=== PATIENT | male | born 1985 | race Caucasian/White ===

== ENCOUNTER 2018-03-29 19:36 | Emergency (ER) | payer OTHER ==
[2018-03-29] MEDS: IBUPROFEN 600 MG TAB PO (21:35)
== END 2018-03-29 21:42 | disposition home or self-care (01) ==
LOC: M ED 19:36
DX: G56.31 Lesion of radial nerve, right upper limb (principal); F11.10 Opioid abuse, uncomplicated; F17.200 Nicotine dependence, unspecified, uncomplicated
CPT/HCPCS: 99284

== ENCOUNTER 2025-02-21 03:25 | Emergency (ER) | payer OTHER ==
[~2025-02-21] VITALS: Ht 170.2 cm; Wt 63.0 kg
[~2025-02-21 03:25] MED LIST: IBUP-1022 PO
[2025-02-21 04:32] LABS: BASO # 0.1 10^3/uL (0.0-0.2); BASO % 0.7 % (0.0-1.0); EOS # 0.2 10^3/uL (0.0-0.5); EOS % 1.7 % (0.0-3.0); LYMPH # 2.4 10^3/uL (1.5-5.0); LYMPH % 18.3 % (24.0-44.0); MONO # 0.7 10^3/uL (0.0-0.8); MONO % 5.3 % (2.0-8.0); NEUTROPHILS # 9.8 10^3/uL (1.5-8.5); NEUTROPHILS % 73.6 % (36.0-66.0); PLATELET COUNT, AUTOMATED 391 10^3/uL (150-450)
[2025-02-21 05:02] LABS: ALT/SGPT 10 U/L (7.0-40); AST/SGOT 18 U/L (<34); CALCIUM LEVEL 9.5 MG/DL (8.5-10.1); CARBON DIOXIDE LEVEL 28 MMOL/L (20-31); CHLORIDE LEVEL 103 MMOL/L (98-107); CREATININE FOR GFR 0.91 MG/DL (0.70-1.30); GLOMERULAR FILTRATION RATE > 90.0 (>60); POTASSIUM SERUM 4.6 MMOL/L (3.5-5.1); SODIUM LEVEL 142 MMOL/L (136-145)
[2025-02-21 05:45] VITALS: TEMP 99.1
[2025-02-21 05:51] LABS: KETONE, URINE AUTO RFX NEGATIVE (NEGATIVE); LEUKOCYTE ESTERASE UR AUTO RFX NEGATIVE (NEGATIVE); NITRITE, URINE AUTO RFX NEGATIVE (NEGATIVE); RBC, URINE AUTO RFX 0 /HPF (0-3); SQUAM EPITHELIAL CELL UR AURFX 0 /HPF (0-6); WBC, URINE AUTO RFX 0 /HPF (0-3)
[2025-02-21] MEDS: METHYLNALTREXONE BROMIDE 12 MG/0.6 ML VIAL SC ONE (06:03)
[2025-02-21] MEDS: KETOROLAC 30 MG/ML 1 ML VIAL IV ONE (06:03)
[2025-02-21] MEDS: GASTROGRAFIN SOLUTION 30ML PO SCH (06:50)
[2025-02-21] MEDS ORDERED: ISOVUE-370 76% 100 ML VIAL As Ordered ONE (08:30)
[2025-02-21] MEDS: NS (Normal Saline) 0.9% 1,000 ML IV ONE (09:23)
[2025-02-21 10:21] LABS: BASO # 0.1 10^3/uL (0.0-0.2); BASO % 0.6 % (0.0-1.0); EOS # 0.0 10^3/uL (0.0-0.5); EOS % 0.2 % (0.0-3.0); LYMPH # 0.9 10^3/uL (1.5-5.0); LYMPH % 8.7 % (24.0-44.0); MONO # 0.4 10^3/uL (0.0-0.8); MONO % 3.9 % (2.0-8.0); NEUTROPHILS # 9.1 10^3/uL (1.5-8.5); NEUTROPHILS % 86.2 % (36.0-66.0)
[2025-02-21] MEDS ORDERED: HOME MED LIST COMPLETE! XX SCH (11:30)
[2025-02-21] MEDS ORDERED: MIRA3350 PO (11:34)
[2025-02-21] MEDS ORDERED: PERC5TAB12 PO (11:34)
[2025-02-21] MEDS ORDERED: AMOX875T2 PO (11:34)
[2025-02-21 11:45] VITALS: BP 131/71; O2SAT 98
== END 2025-02-21 11:47 | disposition left against medical advice (07) ==
LOC: M ED 03:25
DX: K52.9 Noninfective gastroenteritis and colitis, unspecified (principal); F11.23 Opioid dependence with withdrawal; K59.00 Constipation, unspecified; K42.9 Umbilical hernia without obstruction or gangrene; Z79.2 Long term (current) use of antibiotics; Z79.899 Other long term (current) drug therapy; Z53.9 Procedure and treatment not carried out, unspecified reason
CPT/HCPCS: 74018; 74177; 80048; 80076; 81001; 83690; 85025; 96361; 96374; 99285; J1885; J2212; Q9963; Q9967

== ENCOUNTER 2025-03-06 16:36 | Emergency (ER) | payer OTHER ==
[~2025-03-06] VITALS: Ht 170.2 cm; Wt 61.8 kg
[~2025-03-06 16:36] MED LIST changes: +AMOX875T2 PO; +MIRA3350 PO; +PERC5TAB12 PO
[2025-03-06 18:57] LABS: BASO # 0.1 10^3/uL (0.0-0.2); BASO % 0.8 % (0.0-1.0); EOS # 0.1 10^3/uL (0.0-0.5); EOS % 1.0 % (0.0-3.0); LYMPH # 2.0 10^3/uL (1.5-5.0); LYMPH % 17.5 % (24.0-44.0); MONO # 0.7 10^3/uL (0.0-0.8); MONO % 6.1 % (2.0-8.0); NEUTROPHILS # 8.5 10^3/uL (1.5-8.5); NEUTROPHILS % 74.2 % (36.0-66.0); PLATELET COUNT, AUTOMATED 374 10^3/uL (150-450)
[2025-03-06 19:40] LABS: ALT/SGPT 20 U/L (7.0-40); AST/SGOT 18 U/L (<34); CALCIUM LEVEL 9.2 MG/DL (8.5-10.1); CARBON DIOXIDE LEVEL 28 MMOL/L (20-31); CHLORIDE LEVEL 104 MMOL/L (98-107); CREATININE FOR GFR 0.77 MG/DL (0.70-1.30); GLOMERULAR FILTRATION RATE > 90.0 (>60); POTASSIUM SERUM 4.9 MMOL/L (3.5-5.1); SODIUM LEVEL 142 MMOL/L (136-145)
[2025-03-07] MEDS ORDERED: ISOVUE-370 76% 100 ML VIAL As Ordered ONE (00:11)
[2025-03-07] MEDS: NS (Normal Saline) 0.9% 1,000 ML IV ONE (02:02)
[2025-03-07] MEDS: KETOROLAC 30 MG/ML 1 ML VIAL IV ONE (02:03)
[2025-03-07 02:05] LABS: CK-MB VALUE MASS < 1.0 NG/ML (<3.6)
[2025-03-07 02:12] LABS: CPK CREATINE PHOSPHOKINASE 38 U/L (46-171)
[2025-03-07 03:30] VITALS: BP 122/86; TEMP 98.2; O2SAT 95
[2025-03-07] MEDS: MAGNESIUM CITRATE 300 ML BTL PO ONE (03:51)
[2025-03-07] MEDS: METHYLNALTREXONE BROMIDE 12 MG/0.6 ML VIAL SC ONE (03:52)
[2025-03-07] MEDS: FLEET ENEMA PR ONE (03:52)
== END 2025-03-07 04:13 | disposition home or self-care (01) ==
LOC: M ED 16:36
DX: K59.00 Constipation, unspecified (principal); F17.200 Nicotine dependence, unspecified, uncomplicated; G40.909 Epilepsy, unspecified, not intractable, without status epilepticus; J98.11 Atelectasis; Z79.2 Long term (current) use of antibiotics; Z79.899 Other long term (current) drug therapy
CPT/HCPCS: 74177; 80048; 80076; 82550; 82553; 83605; 83690; 84484; 85025; 93005; 96361; 96374; 99284; J1885; J2212; Q9967